=== PATIENT | female | born 1995 | race Caucasian/White ===

== ENCOUNTER → 2023-12-31 14:19 | Outpatient (REF) | payer BC, SELFPAY ==
[2023-12-31 16:12] LABS: Urine Albumin 1+ (Neg - Trace); Urine Bilirubin Negative (Negative); Urine Character Clear (Clear); Urine Color Yellow; Urine Glucose Negative (Negative); Urine Ketone Negative (Negative); Urine Leukocyte 2+ (Negative); Urine Nitrite Negative (Negative); Urine Occult Blood 4+ (Negative); Urine Specific Gravity 1.005 (<1.030); Urine Urobilinogen Negative (Neg - 1+)
[2023-12-31 16:34] LABS: Urine Red Blood Cell 50-60 /HPF (0-2); Urine White Cell 26-30 /HPF (0-5)
[2023-12-31 16:35] LABS: Urine Bacteria Moderate (Negative)
== END ==
LOC: REG 14:19
PROVIDERS: ATTENDING PHYSICIAN Student in an Organized Health Care Education/Training Program
DX: R30.0 Dysuria (principal)
CPT/HCPCS: 81003; 81015; 87086; 87088; 87186

== ENCOUNTER → 2024-04-03 12:17 | Outpatient (REF) | payer BC, SELFPAY | LOC: CPAP 12:17 | PROVIDERS: ATTENDING PHYSICIAN Nurse Practitioner Family | DX: Z01.419 Encounter for gynecological examination (general) (routine) without abnormal findings (principal) | CPT/HCPCS: G0123 ==

== ENCOUNTER → 2024-05-28 01:45 | Outpatient (REF) | payer BC, SELFPAY ==
[2024-05-28 05:44] LABS: Hematocrit 39.6 % (37.0-47.0); Hemoglobin 13.7 g/dL (12.0-16.0); Mean Corp Hgb Conc. 34.6 g/dL (33.0-37.0); Mean Corpuscular Hgb 31.2 pg (27.0-31.0); Mean Corpuscular Volume 90.2 fL (81.0-99.0); Mean Platelet Volume 9.8 fL (7.4-10.4); Platelet Count 214 10^3/uL (130-400); Red Blood Cell Count 4.39 10^6/uL (4.20-5.40); Red Cell Dist. Width 12.2 % (11.5-14.5); White Blood Cell Count 13.1 10^3/uL (4.8-10.8)
[2024-05-28 06:12] LABS: ALT (SGPT) 30 U/L (0-35); AST (SGOT) 26 U/L (14-36); Albumin 4.5 g/dl (3.5-5.0); Alkaline Phosphatase 64 U/L (38-126); Blood Urea Nitrogen 23 mg/dl (7-17); Calcium 9.5 mg/dl (8.4-10.2); Carbon Dioxide 19 mmol/L (22-30); Chloride 103 mmol/L (98-107); Glucose 100 mg/dl (70-99); HDL Cholesterol 49 mg/dl; LDL Cholesterol, Calculated 88 mg/dl; Potassium 4.2 mmol/L (3.5-5.1); Sodium 137 mmol/L (135-145); Total Bilirubin 0.3 mg/dl (0.2-1.3); Total Cholesterol 157 mg/dl (50-199); Total Protein 6.8 g/dl (6.3-8.2); Triglyceride 104 mg/dl (10-149); Very Low Density Lipoprotein 20 mg/dl (0-30); eGFR > 60.00
[2024-05-28 06:40] LABS: TSH Reflex To Free T4 5.67 uIU/ml (0.47-4.68)
[2024-05-28 07:09] LABS: Free T4 0.84 ng/dl (0.78-2.19)
[2024-05-28 09:05] LABS: Glycohemoglobin (HgbA1c) 5.3 % (4.0-5.6)
== END ==
LOC: REG 01:45
PROVIDERS: ATTENDING PHYSICIAN Physician Assistant Medical
DX: Z00.00 Encounter for general adult medical examination without abnormal findings (principal); R73.03 Prediabetes; Z13.220 Encounter for screening for lipoid disorders; F41.8 Other specified anxiety disorders; I10 Essential (primary) hypertension; R00.0 Tachycardia, unspecified
CPT/HCPCS: 80053; 80061; 83036; 84439; 84443; 85027

== ENCOUNTER → 2024-08-04 11:25 | Outpatient (REF) | payer BC, SELFPAY | LOC: CPAP 11:25 | PROVIDERS: ATTENDING PHYSICIAN Nurse Practitioner Family | DX: Z11.3 Encounter for screening for infections with a predominantly sexual mode of transmission (principal); Z32.01 Encounter for pregnancy test, result positive | CPT/HCPCS: 87491; 87591 ==

== ENCOUNTER → 2024-08-10 07:17 | Outpatient (REF) | payer BC, SELFPAY ==
[2024-08-10 08:04] LABS: Urine Albumin Negative (Neg - Trace); Urine Bilirubin Negative (Negative); Urine Character Clear (Clear); Urine Color Yellow; Urine Glucose Negative (Negative); Urine Ketone Negative (Negative); Urine Leukocyte Negative (Negative); Urine Nitrite Negative (Negative); Urine Occult Blood Negative (Negative); Urine Urobilinogen Negative (Neg - 1+)
[2024-08-10 08:07] LABS: % Basophils 0.2 % (0-2); % Eosinophils 1.3 % (0-6); % Immature Granulocytes 0.4 % (0-0.5); % Lymphocytes 13.8 % (20.5-51.1); % Neutrophils 78.3 % (42.2-75.2); Absolute Eosinophils 0.2 10^3/uL (0-0.7); Absolute Immature Granulocytes 0.1 10^3/uL (0-0.05); Absolute Lymphocytes 1.9 10^3/uL (1.2-3.4); Absolute Monocytes 0.8 10^3/uL (0.1-0.6); Absolute Neutrophils 10.9 10^3/uL (1.4-6.5); Hematocrit 39.9 % (37.0-47.0); Hemoglobin 13.8 g/dL (12.0-16.0); Mean Corp Hgb Conc. 34.6 g/dL (33.0-37.0); Mean Corpuscular Hgb 31.2 pg (27.0-31.0); Mean Corpuscular Volume 90.3 fL (81.0-99.0); Mean Platelet Volume 10.1 fL (7.4-10.4); Nucleated Red Blood Cells % 0 %; Platelet Count 195 10^3/uL (130-400); Red Blood Cell Count 4.42 10^6/uL (4.20-5.40)
[2024-08-10 14:08] LABS: Glycohemoglobin (HgbA1c) 5.5 % (4.0-5.6)
[2024-08-10 15:12] LABS: Hepatitis B Surface Antigen Negative (Negative)
[2024-08-10 15:22] LABS: HIV Combo Negative (Negative)
[2024-08-10 19:04] LABS: Rubella Positive
[2024-08-11 15:31] LABS: Syphilis/T. pallidum Ab Reflex Negative (Negative)
== END ==
LOC: REG 07:17
PROVIDERS: ATTENDING PHYSICIAN Nurse Practitioner Family
DX: Z32.01 Encounter for pregnancy test, result positive (principal)
CPT/HCPCS: 36415; 80055; 81003; 83036; 84702; 87389

== ENCOUNTER → 2024-08-20 07:29 | Outpatient (REF) | payer BC, SELFPAY ==
[2024-08-20 21:28] LABS: Hepatitis C Antibody Negative (Negative)
== END ==
LOC: REG 07:29
PROVIDERS: ATTENDING PHYSICIAN Obstetrics & Gynecology; FAMILY PHYSICIAN Physician Assistant Medical
DX: Z34.81 Encounter for supervision of other normal pregnancy, first trimester (principal); Z34.01 Encounter for supervision of normal first pregnancy, first trimester
CPT/HCPCS: 36415; 86803; 86850; 86900; 86901

== ENCOUNTER → 2024-08-27 13:28 | Outpatient (REF) | payer BC, SELFPAY | LOC: PNTC 13:28 | PROVIDERS: ATTENDING PHYSICIAN Obstetrics & Gynecology | DX: Z36.0 Encounter for antenatal screening for chromosomal anomalies (principal); Z36.82 Encounter for antenatal screening for nuchal translucency | CPT/HCPCS: 76801; 76813 ==

== ENCOUNTER → 2024-09-24 07:51 | Outpatient (REF) | payer BC, SELFPAY | LOC: PNTC 07:51 | PROVIDERS: ATTENDING PHYSICIAN Obstetrics & Gynecology | DX: O99.210 Obesity complicating pregnancy, unspecified trimester (principal) | CPT/HCPCS: 76805 ==

== ENCOUNTER → 2024-09-30 07:32 | Outpatient (REF) | payer BC, SELFPAY ==
[2024-10-03 09:41] LABS: Dating Ultrasound; Family Neural Tube Defect Hx No; Insulin Req Maternal Diabetes No; Maternal Age at Delivery 29.8 yr; Maternal Race Nonblack; Maternal Screen Interpretation Screen Neg; Maternal Weight 220.0 lbs.; Number of Fetuses Singleton; Patient's AFP Concentration 30 ng/mL; Smoking No
== END ==
LOC: REG 07:32
PROVIDERS: ATTENDING PHYSICIAN Obstetrics & Gynecology; FAMILY PHYSICIAN Physician Assistant Medical
DX: Z34.92 Encounter for supervision of normal pregnancy, unspecified, second trimester (principal)
CPT/HCPCS: 36415; 82105

== ENCOUNTER → 2024-10-26 08:16 | Outpatient (REF) | payer BC, SELFPAY | LOC: PNTC 08:16 | PROVIDERS: ATTENDING PHYSICIAN Obstetrics & Gynecology | DX: O99.210 Obesity complicating pregnancy, unspecified trimester (principal) | CPT/HCPCS: 76811 ==

== ENCOUNTER → 2024-11-13 11:55 | Outpatient (REF) | payer BC, SELFPAY ==
[2024-11-13 13:15] LABS: Urine Albumin 1+ (Neg - Trace); Urine Bilirubin Negative (Negative); Urine Character Clear (Clear); Urine Color Yellow; Urine Glucose Negative (Negative); Urine Ketone Negative (Negative); Urine Leukocyte Negative (Negative); Urine Nitrite Negative (Negative); Urine Occult Blood 1+ (Negative); Urine Urobilinogen Negative (Neg - 1+)
[2024-11-13 13:32] LABS: Urine Bacteria Moderate (Negative); Urine Calcium Oxalate Crystals Present; Urine Red Blood Cell 0-2 /HPF (0-2); Urine Squamous Cell 16-20 /LPF (Few)
== END ==
LOC: CLAB 11:55
PROVIDERS: ATTENDING PHYSICIAN Obstetrics & Gynecology
DX: R31.9 Hematuria, unspecified (principal)
CPT/HCPCS: 81003; 81015; 87086

== ENCOUNTER → 2024-12-03 09:29 | Outpatient (REF) | payer BC, SELFPAY | LOC: PNTC 09:29 | PROVIDERS: ATTENDING PHYSICIAN Obstetrics & Gynecology | DX: O99.210 Obesity complicating pregnancy, unspecified trimester (principal) | CPT/HCPCS: 76816 ==

== ENCOUNTER → 2024-12-10 08:20 | Outpatient (REF) | payer BC, SELFPAY ==
[2024-12-10 09:55] LABS: % Basophils 0.2 % (0-2); % Eosinophils 0.9 % (0-6); % Immature Granulocytes 1.4 % (0-0.5); % Lymphocytes 13.2 % (20.5-51.1); % Monocytes 4.4 % (1.7-9.3); % Neutrophils 79.9 % (42.2-75.2); Absolute Eosinophils 0.1 10^3/uL (0-0.7); Absolute Immature Granulocytes 0.2 10^3/uL (0-0.05); Absolute Lymphocytes 2.2 10^3/uL (1.2-3.4); Absolute Monocytes 0.7 10^3/uL (0.1-0.6); Absolute Neutrophils 13.1 10^3/uL (1.4-6.5); Mean Corp Hgb Conc. 34.2 g/dL (33.0-37.0); Mean Corpuscular Hgb 30.8 pg (27.0-31.0); Mean Platelet Volume 10.5 fL (7.4-10.4); Nucleated Red Blood Cells % 0 %; Platelet Count 138 10^3/uL (130-400); Red Blood Cell Count 4.22 10^6/uL (4.20-5.40); Red Cell Dist. Width 13.1 % (11.5-14.5); White Blood Cell Count 16.4 10^3/uL (4.8-10.8)
[2024-12-10 10:38] LABS: 1 Hour after 50gm 151 mg/dl
[2024-12-11 11:14] LABS: Syphilis/T. pallidum Ab Reflex Negative (Negative)
== END ==
LOC: REG 08:20
PROVIDERS: ATTENDING PHYSICIAN Obstetrics & Gynecology; FAMILY PHYSICIAN Physician Assistant Medical
DX: Z34.93 Encounter for supervision of normal pregnancy, unspecified, third trimester (principal)
CPT/HCPCS: 36415; 82950; 85025; 86780

== ENCOUNTER → 2024-12-18 09:37 | Outpatient (REF) | payer BC, SELFPAY ==
[2024-12-18 10:07] LABS: Glucose for Tolerance Test 108 mg/dl
[2024-12-18 11:38] LABS: Glucose for Tolerance Test 215 mg/dl
[2024-12-18 13:45] LABS: Glucose for Tolerance Test 163 mg/dl
[2024-12-18 14:03] LABS: Glucose for Tolerance Test 85 mg/dl
== END ==
LOC: REG 09:37
PROVIDERS: ATTENDING PHYSICIAN Obstetrics & Gynecology
DX: Z34.93 Encounter for supervision of normal pregnancy, unspecified, third trimester (principal)
CPT/HCPCS: 36415; 82951

== ENCOUNTER → 2024-12-23 07:56 | Outpatient (REF) | payer BC, SELFPAY ==
--- NOTE | 2024-12-23 07:41 | PN.DIAED06 ---
Meal Plan - Gestational
- Breakfast
Gestational Diabetes Meal Plan Name: 2000 calories
Breakfast - Total Carbohydrate (grams): 45
Breakfast - Starch Carbohydrate: 2
Breakfast - Fruit Carbohydrate: 0
Breakfast - Milk Carbohydrate: 1
Breakfast - Nonstarchy Vegetables: Yes
Breakfast - Meat/Protein: 1
Breakfast - Fat: 2
- Morning Snack
Morning Snack - Total Carbohydrate (grams): 30
Morning Snack - Starch Carbohydrate: 1
Morning Snack - Fruit Carbohydrate: 0
Morning Snack - Milk Carbohydrate: 1
Morning Snack - Nonstarchy Vegetables: Yes
Morning Snack - Meat/Protein: 0
Morning Snack - Fat: 0
- Lunch
Lunch - Total Carbohydrate (grams): 45
Lunch - Starch Carbohydrate: 1
Lunch - Fruit Carbohydrate: 1
Lunch - Milk Carbohydrate: 1
Lunch - Nonstarchy Vegetables: Yes
Lunch - Meat/Protein: 2
Lunch - Fat: 2
- Afternoon Snack
Afternoon Snack - Total Carbohydrate (grams): 30
Afternoon Snack - Starch Carbohydrate: 1
Afternoon Snack - Fruit Carbohydrate: 1
Afternoon Snack - Milk Carbohydrate: 0
Afternoon Snack - Nonstarchy Vegetables: Yes
Afternoon Snack - Meat/Protein: 1
Afternoon Snack - Fat: 0
- Dinner
Dinner - Total Carbohydrate (grams): 45
Dinner - Starch Carbohydrate: 2
Dinner - Fruit Carbohydrate: 1
Dinner - Milk Carbohydrate: 0
Dinner - Nonstarchy Vegetables: Yes
Dinner - Meat/Protein: 2
Dinner - Fat: 2
- Evening Snack
Evening Snack - Total Carbohydrate (grams): 45
Evening Snack - Starch Carbohydrate: 1
Evening Snack - Fruit Carbohydrate: 1
Evening Snack - Milk Carbohydrate: 1
Evening Snack - Nonstarchy Vegetables: Yes
Evening Snack - Meat/Protein: 1
Evening Snack - Fat: 0
--- NOTE | 2024-12-23 09:48 | PN.DE ---
Diabetes Education
- -
12/23/2024 GESTATIONAL DIABETES CONSULT
Met with Ms. Romero today, G1,P0, currently at 29 weeks of gestation, here today for medical nutrition therapy.
Explained glucose metabolism in body and what occurs during to cause increase blood sugar. Discussed importance of keeping BS well controlled to avoid complications to the baby during and after (macrosomia, hypoglycemia).
Discussed macronutrients, provided with 2000 telly GDM meal plan.
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
Connie states that she does not want to go through [facility] medical as required by her insurance to order a glucometer. States she may order glucometer on [employer], I provided information on [employer] for cost comparison.
Connie declined glucometer review, states she is very proficient in checking glucose levels. We reviewed testing requirements of fasting glucose and 2 hr pp each meal. Expected results for FBS <95 mg/dl and 2 hr pp <120 mg/dl.
Log sheet provided for her to record results, she will send a 4-day meal log with all her FBG and 2hr Post prandial glucose numbers to this office for review. In addition, she will send all her glucose readings to [facility]
every Saturday. She was encouraged to reach out should she require insulin.
== END ==
LOC: DES 07:56
PROVIDERS: ATTENDING PHYSICIAN Obstetrics & Gynecology
DX: O24.419 Gestational diabetes mellitus in pregnancy, unspecified control (principal)
CPT/HCPCS: 99078

== ENCOUNTER → 2025-01-14 08:16 | Outpatient (REF) | payer BC, SELFPAY | LOC: PNTC 08:16 | PROVIDERS: ATTENDING PHYSICIAN Obstetrics & Gynecology | DX: O99.210 Obesity complicating pregnancy, unspecified trimester (principal) | CPT/HCPCS: 76816 ==

== ENCOUNTER → 2025-02-10 13:49 | Outpatient (REF) | payer BC, SELFPAY | LOC: CPAP 13:49 | PROVIDERS: ATTENDING PHYSICIAN Obstetrics & Gynecology | DX: Z34.90 Encounter for supervision of normal pregnancy, unspecified, unspecified trimester (principal); Z36.85 Encounter for antenatal screening for Streptococcus B | CPT/HCPCS: 87070; 87077; 87147 ==

== ENCOUNTER → 2025-02-11 07:58 | Outpatient (REF) | payer BC, SELFPAY | LOC: PNTC 07:58 | PROVIDERS: ATTENDING PHYSICIAN Obstetrics & Gynecology | DX: O99.210 Obesity complicating pregnancy, unspecified trimester (principal) | CPT/HCPCS: 59025; 76816 ==

== ENCOUNTER 2025-02-19 10:01 | Inpatient (IN) | payer BC, SELFPAY ==
[2025-02-18 08:43] VITALS: BP 155/81; BMI 38.8
[2025-02-18 09:09] LABS: Urine Albumin 2+ (Neg - Trace); Urine Bilirubin Negative (Negative); Urine Character Clear (Clear); Urine Color Yellow; Urine Glucose Negative (Negative); Urine Ketone Negative (Negative); Urine Leukocyte 1+ (Negative); Urine Nitrite Negative (Negative); Urine Occult Blood Negative (Negative); Urine Specific Gravity 1.015 (<1.030); Urine Urobilinogen Negative (Neg - 1+); Urine pH 6.5 (5.0-9.0)
[2025-02-18 09:11] LABS: ALT (SGPT) 17 U/L (0-35); AST (SGOT) 15 U/L (14-36); Albumin 3.5 g/dl (3.5-5.0); Alkaline Phosphatase 122 U/L (38-126); Blood Urea Nitrogen 12 mg/dl (7-17); Calcium 9.2 mg/dl (8.4-10.2); Carbon Dioxide 21 mmol/L (22-30); Chloride 110 mmol/L (98-107); Estimated Creatinine Clearance > 125 ml/min; Glucose 91 mg/dl (70-99); Potassium 4.1 mmol/L (3.5-5.1); Sodium 136 mmol/L (135-145); Total Bilirubin 0.4 mg/dl (0.2-1.3); eGFR > 60.00
[2025-02-18 09:17] LABS: Hematocrit 38.3 % (37.0-47.0); Hemoglobin 13.3 g/dL (12.0-16.0); Mean Corp Hgb Conc. 34.7 g/dL (33.0-37.0); Mean Corpuscular Hgb 31.2 pg (27.0-31.0); Mean Corpuscular Volume 89.9 fL (81.0-99.0); Red Blood Cell Count 4.26 10^6/uL (4.20-5.40); Red Cell Dist. Width 13.3 % (11.5-14.5); White Blood Cell Count 13.8 10^3/uL (4.8-10.8)
[2025-02-18 10:06] LABS: Urine Squamous Cell >30 /LPF (Few)
[2025-02-18 10:18] LABS: Urine Bacteria Moderate (Negative)
[2025-02-18 10:19] LABS: Urine Red Blood Cell 0-2 /HPF (0-2)
[2025-02-18 10:22] LABS: Protein/creatinine Ratio 0.4; Urine Protein 32 mg/dl
[2025-02-18 10:35] LABS: Mean Platelet Volume 11.8 fL (7.4-10.4); Platelet Count 98 10^3/uL (130-400)
[2025-02-18 13:37] LABS: Hematocrit 39.7 % (37.0-47.0); Hemoglobin 13.8 g/dL (12.0-16.0); Mean Corp Hgb Conc. 34.8 g/dL (33.0-37.0); Mean Corpuscular Hgb 30.9 pg (27.0-31.0); Mean Platelet Volume 11.7 fL (7.4-10.4); Platelet Count 98 10^3/uL (130-400); Red Blood Cell Count 4.46 10^6/uL (4.20-5.40); Red Cell Dist. Width 13.2 % (11.5-14.5)
[2025-02-18] MEDS: MAGNESIUM SULFATE 100 IV (13:40)
[2025-02-18] MEDS: LR 1000 IV (13:40)
[2025-02-18 13:51] LABS: ALT (SGPT) 18 U/L (0-35); AST (SGOT) 18 U/L (14-36); Albumin 3.5 g/dl (3.5-5.0); Alkaline Phosphatase 118 U/L (38-126); Blood Urea Nitrogen 8 mg/dl (7-17); Carbon Dioxide 17 mmol/L (22-30); Chloride 113 mmol/L (98-107); Estimated Creatinine Clearance > 125 ml/min; Glucose 86 mg/dl (70-99); Potassium 4.4 mmol/L (3.5-5.1); Sodium 138 mmol/L (135-145); Total Bilirubin 0.5 mg/dl (0.2-1.3); Total Protein 6.1 g/dl (6.3-8.2); eGFR > 60.00
[2025-02-18] MEDS: MAGNESIUM SULFATE 40 GRAM 1000 IV (13:59)
[2025-02-18] MEDS: PITOCIN 30 UNITS/NSS 500 ML IV (14:27)
[2025-02-18 18:10] LABS: Glucose - Point of Care 105 mg/dl (70-99)
[2025-02-18 19:31] LABS: Hematocrit 39.5 % (37.0-47.0); Hemoglobin 13.6 g/dL (12.0-16.0); Mean Corp Hgb Conc. 34.4 g/dL (33.0-37.0); Mean Corpuscular Hgb 30.9 pg (27.0-31.0); Mean Corpuscular Volume 89.8 fL (81.0-99.0); Mean Platelet Volume 11.6 fL (7.4-10.4); Platelet Count 98 10^3/uL (130-400); Red Cell Dist. Width 13.2 % (11.5-14.5); White Blood Cell Count 14.5 10^3/uL (4.8-10.8)
[2025-02-18 19:52] LABS: ALT (SGPT) 16 U/L (0-35); AST (SGOT) 16 U/L (14-36); Albumin 3.4 g/dl (3.5-5.0); Alkaline Phosphatase 125 U/L (38-126); Blood Urea Nitrogen 7 mg/dl (7-17); Calcium 8.6 mg/dl (8.4-10.2); Carbon Dioxide 21 mmol/L (22-30); Chloride 111 mmol/L (98-107); Estimated Creatinine Clearance > 125 ml/min; Glucose 88 mg/dl (70-99); Potassium 4.1 mmol/L (3.5-5.1); Sodium 138 mmol/L (135-145); Total Bilirubin 0.4 mg/dl (0.2-1.3); Total Protein 5.9 g/dl (6.3-8.2); eGFR > 60.00
[2025-02-18] MEDS: ZOLOFT 50 MG PO (20:09)
[2025-02-18] MEDS: TYLENOL 650 MG PO (20:10)
[2025-02-19 01:32] LABS: Hematocrit 36.6 % (37.0-47.0); Hemoglobin 12.9 g/dL (12.0-16.0); Mean Corp Hgb Conc. 35.2 g/dL (33.0-37.0); Mean Corpuscular Hgb 31.4 pg (27.0-31.0); Mean Corpuscular Volume 89.1 fL (81.0-99.0); Mean Platelet Volume 11.7 fL (7.4-10.4); Platelet Count 99 10^3/uL (130-400); Red Blood Cell Count 4.11 10^6/uL (4.20-5.40); Red Cell Dist. Width 13.2 % (11.5-14.5); White Blood Cell Count 12.8 10^3/uL (4.8-10.8)
[2025-02-19 01:53] LABS: ALT (SGPT) 16 U/L (0-35); AST (SGOT) 15 U/L (14-36); Albumin 3.1 g/dl (3.5-5.0); Alkaline Phosphatase 121 U/L (38-126); Blood Urea Nitrogen 9 mg/dl (7-17); Calcium 7.8 mg/dl (8.4-10.2); Carbon Dioxide 19 mmol/L (22-30); Chloride 111 mmol/L (98-107); Estimated Creatinine Clearance > 125 ml/min; Glucose 90 mg/dl (70-99); Potassium 3.7 mmol/L (3.5-5.1); Sodium 137 mmol/L (135-145); Total Bilirubin 0.4 mg/dl (0.2-1.3); Total Protein 5.5 g/dl (6.3-8.2); eGFR > 60.00
[2025-02-19] MEDS: LR 1000 IV (04:05)
[2025-02-19 07:35] LABS: Hematocrit 39.4 % (37.0-47.0); Hemoglobin 13.6 g/dL (12.0-16.0); Mean Corp Hgb Conc. 34.5 g/dL (33.0-37.0); Mean Corpuscular Hgb 30.8 pg (27.0-31.0); Mean Corpuscular Volume 89.1 fL (81.0-99.0); Mean Platelet Volume 11.6 fL (7.4-10.4); Platelet Count 99 10^3/uL (130-400); Red Blood Cell Count 4.42 10^6/uL (4.20-5.40); Red Cell Dist. Width 13.3 % (11.5-14.5); White Blood Cell Count 13.8 10^3/uL (4.8-10.8)
[2025-02-19] MEDS: PRENATAL PLUS PO (07:42)
[2025-02-19] MEDS: TYLENOL 650 MG PO (07:57)
[2025-02-19] MEDS: MAGNESIUM SULFATE 40 GRAM 1000 IV (08:01)
[2025-02-19 08:31] LABS: ALT (SGPT) 16 U/L (0-35); AST (SGOT) 16 U/L (14-36); Albumin 3.3 g/dl (3.5-5.0); Alkaline Phosphatase 143 U/L (38-126); Blood Urea Nitrogen 8 mg/dl (7-17); Calcium 7.5 mg/dl (8.4-10.2); Carbon Dioxide 19 mmol/L (22-30); Chloride 110 mmol/L (98-107); Estimated Creatinine Clearance > 125 ml/min; Glucose 97 mg/dl (70-99); Potassium 3.9 mmol/L (3.5-5.1); Sodium 134 mmol/L (135-145); Total Bilirubin 0.5 mg/dl (0.2-1.3); Total Protein 5.8 g/dl (6.3-8.2); eGFR > 60.00
[2025-02-19] MEDS: BICITRA 30 ML PO (11:23)
[2025-02-19] MEDS: ANCEF 10 IV (11:23)
[2025-02-19] MEDS: ZOFRAN 4 MG IV (15:14)
[2025-02-19] MEDS: PERCOCET 5/325 1 TABLET PO (15:14)
[2025-02-19] MEDS: TORADOL 15 MG IV ×2 (15:59→21:58)
[2025-02-19] MEDS: ZOLOFT 50 MG PO (16:44)
[2025-02-19] MEDS: TRANDATE 200 MG PO (20:00)
[2025-02-20] MEDS: TORADOL 15 MG IV ×2 (03:55→10:01)
[2025-02-20 06:25] LABS: Hematocrit 30.7 % (37.0-47.0); Hemoglobin 10.5 g/dL (12.0-16.0); Mean Corp Hgb Conc. 34.2 g/dL (33.0-37.0); Mean Corpuscular Hgb 31.5 pg (27.0-31.0); Mean Corpuscular Volume 92.2 fL (81.0-99.0); Mean Platelet Volume 11.9 fL (7.4-10.4); Platelet Count 112 10^3/uL (130-400); Red Blood Cell Count 3.33 10^6/uL (4.20-5.40); Red Cell Dist. Width 13.3 % (11.5-14.5); White Blood Cell Count 14.9 10^3/uL (4.8-10.8)
[2025-02-20] MEDS: ZOLOFT 50 MG PO (08:10)
[2025-02-20] MEDS: PRENATAL PLUS 1 TABLET PO (08:10)
[2025-02-20] MEDS: TRANDATE 200 MG PO ×2 (08:30→19:49)
[2025-02-20] MEDS: TUMS CHEWABLE TABLET 400 MG PO (12:08)
--- NOTE | 2025-02-20 12:46 | W.PN.ANS.POP ---
Anesthesia Post Operative
- Anesthesia Post Op Note
Vital Signs Stable-See Nursing Note: Yes
Airway Patent: Yes
Adequate Pain Control: Yes
Change in Mental Status: No
Current Postoperative Nausea & Vomiting: No
Anesthesia Complications: No
General Anesthetic Recall: No
Unplanned Admission: No
Post Op Hydration Adequate: Yes
[2025-02-20] MEDS: SENOKOT-S 1 TABLET PO (16:15)
[2025-02-20] MEDS: MOTRIN 600 MG PO ×2 (16:15→23:03)
[2025-02-20] MEDS: MYLICON 80 MG PO (16:16)
[2025-02-21] MEDS: MOTRIN 600 MG PO (06:11)
[2025-02-21] MEDS: TRANDATE 200 MG PO (08:04)
[2025-02-21] MEDS: ZOLOFT 50 MG PO (08:05)
[2025-02-21] MEDS: SENOKOT-S 1 TABLET PO (08:05)
[2025-02-21] MEDS: PRENATAL PLUS 1 TABLET PO (08:05)
--- NOTE | 2025-02-21 09:48 | W.DS.TRANS ---
DC Summary - Labor Relations Specialist
-
Discharge Instructions:
Discharge Diagnosis/Procedures 37.2 wks, gestational diabetes diet
controlled, preeclampsia severe features,
induction of labor, epidural, nonreassuring
heart rate/intolerance of labor; primary
low transverse section,
hemorrhage, mild anemia, Celi insertion
Diet Regular
Activity No strenuous activity
Driving Restrictions No driving for 2 weeks
Bathing Restrictions OK to Shower
Instructions:
Stand-Alone Forms: LDRP Delivery
Changes to Home Medications: No
Discharge Medications:
DC Medications w/original date entered in [employer]
[id number] 1 mg tablet 1 tab PO DAILY Supplement 02/18/25
sertraline 50 mg tablet (Zoloft) 50 mg PO DAILY Mental Health/Anxiety 02/18/25
ibuprofen 600 mg tablet 600 mg PO Q6HPRN PRN cramps #0 tabs 02/20/25
labetalol 200 mg tablet 200 mg PO BID #60 tabs 02/20/25
Home Medication Changes
Pending Results: Yes (pathology placenta)
Total time spent discharging patient (in min): 30
[2025-02-23 14:39] LABS: Syphilis/T. pallidum Ab Reflex Negative (Negative)
== END 2025-02-21 13:00 | disposition home or self-care (01) | DRG 787 ==
LOC: LDRP 10:01
PROVIDERS: Obstetrics & Gynecology; ADMITTING PHYSICIAN Obstetrics & Gynecology; ATTENDING PHYSICIAN Obstetrics & Gynecology
PROC: 10D00Z1 Extraction of Products of Conception, Low, Open Approach (ICD-10-PCS; 2025-02-18)
PROC: 3E033VJ Introduction of Other Hormone into Peripheral Vein, Percutaneous Approach (ICD-10-PCS; 2025-02-18)
DX: O14.14 Severe pre-eclampsia complicating childbirth (principal); O99.12 Other diseases of the blood and blood-forming organs and certain disorders involving the immune mechanism complicating childbirth; Z3A.37 37 weeks gestation of pregnancy; Z37.0 Single live birth; O61.9 Failed induction of labor, unspecified; O99.214 Obesity complicating childbirth; O24.420 Gestational diabetes mellitus in childbirth, diet controlled; O99.824 Streptococcus B carrier state complicating childbirth; O99.344 Other mental disorders complicating childbirth; F41.9 Anxiety disorder, unspecified; O72.1 Other immediate postpartum hemorrhage; D69.1 Qualitative platelet defects; D69.6 Thrombocytopenia, unspecified; Z79.82 Long term (current) use of aspirin; Z80.42 Family history of malignant neoplasm of prostate; Z82.49 Family history of ischemic heart disease and other diseases of the circulatory system; Z83.3 Family history of diabetes mellitus
CPT/HCPCS: 88307; 59025; 76815; 80053; 81003; 81015; 82570; 82962; 84156; 85027; 86780; 86850; 86900; 86901

== ENCOUNTER → 2025-06-10 07:28 | Outpatient (REF) | payer BC, SELFPAY ==
[2025-06-10 07:53] LABS: Hematocrit 41.2 % (37.0-47.0); Hemoglobin 13.7 g/dL (12.0-16.0); Mean Corp Hgb Conc. 33.3 g/dL (33.0-37.0); Mean Corpuscular Volume 85.7 fL (81.0-99.0); Nucleated Red Blood Cells % 0 %; Platelet Count 212 10^3/uL (130-400); Red Cell Dist. Width 12.9 % (11.5-14.5)
[2025-06-10 09:12] LABS: Glycohemoglobin (HgbA1c) 5.3 % (4.0-5.6)
[2025-06-10 11:25] LABS: ALT (SGPT) 32 U/L (0-35); AST (SGOT) 21 U/L (14-36); Albumin 4.5 g/dl (3.5-5.0); Alkaline Phosphatase 65 U/L (38-126); Calcium 9.3 mg/dl (8.4-10.2); Carbon Dioxide 17 mmol/L (22-30); Chloride 108 mmol/L (98-107); Glucose 100 mg/dl (70-99); HDL Cholesterol 56 mg/dl; LDL Cholesterol, Calculated 89 mg/dl; Potassium 4.3 mmol/L (3.5-5.1); Sodium 136 mmol/L (135-145); Total Protein 7.3 g/dl (6.3-8.2); Very Low Density Lipoprotein 16 mg/dl (0-30); eGFR > 60.00
[2025-06-10 12:40] LABS: Blood Urea Nitrogen 19 mg/dl (7-17)
== END ==
LOC: REG 07:28
PROVIDERS: ATTENDING PHYSICIAN Physician Assistant Medical
DX: Z00.00 Encounter for general adult medical examination without abnormal findings (principal); F41.8 Other specified anxiety disorders; I10 Essential (primary) hypertension; R00.0 Tachycardia, unspecified; R73.03 Prediabetes; E66.09 Other obesity due to excess calories; Z13.220 Encounter for screening for lipoid disorders
CPT/HCPCS: 36415; 80053; 80061; 83036; 84443; 85025